=== PATIENT | male | born 1980 | race Caucasian/White ===

== ENCOUNTER 2016-08-03 12:04 | Emergency (ER) | payer BC ==
[~2016-08-03] VITALS: Ht 175.3 cm; Wt 82.3 kg
[~2016-08-03 12:04] MED LIST: PRED1SUS3 OPL
[2016-08-03 12:09] VITALS: TEMP 36.7; Ht 175.3 cm; Wt 82.3 kg
[2016-08-03] MEDS ORDERED: OPTIRAY 320 IV PRN (13:45)
[2016-08-03 14:07] LABS: BASO % 0.6 %; BASO ABS # 0.05 K/uL (0-0.2); COMPLETE YES; EOS % 2.2 %; HEMATOCRIT 41.2 % (42-52); IG% 0.1 %; LYMPH % 24.2 %; MEAN CELL VOLUME 83.1 fL (80-100); MEAN PLATELET VOLUME 10.2 fL (7.4-10.4); MONO % 5.2 %; NEUT % 67.7 %; PLATELET COUNT 242 K/uL (130-400); RED BLOOD COUNT 4.96 M/uL (4.7-6.1); WHITE BLOOD COUNT 8.68 K/uL (4.8-10.8)
[2016-08-03 14:21] LABS: CALCIUM 9.1 mg/dl (8.5-10.1); CREATININE 0.83 mg/dl (0.60-1.40); POTASSIUM 3.9 mmol/L (3.5-5.1)
[2016-08-03 14:25] LABS: ALB/GLOB RATIO 1.1 (0.9-2)
--- NOTE | 2016-08-03 14:56 | DIAGNOSTIC IMAGING REPORT ---
CT SCAN OF THE ABDOMEN AND PELVIS WITH IV CONTRAST CLINICAL HISTORY: Left lower quadrant abdominal pain. COMPARISON STUDY: No priors. TECHNIQUE: Following the IV administration of 94 cc of Optiray 320, CT scan of the abdomen and pelvis is performed from the lung bases to the proximal femora. Images are reviewed in the axial, sagittal, and coronal planes. IV contrast was administered without complication. Automated dose control exposure was utilized. CT DOSE: 604.20 mGycm FINDINGS: Lung bases: The heart is normal in size and without pericardial effusion. The lung bases are clear. Liver: The contrast-enhanced liver is normal in size, contour, and attenuation. There is no intrahepatic biliary ductal dilatation. The hepatic veins and portal veins are patent. Gallbladder: Unremarkable. Spleen: Normal in size and attenuation. A 9 mm splenic hypodensity seen on image #96 is of indeterminant but doubtful significance. Pancreas: Unremarkable. Adrenal glands: Unremarkable. Kidneys: The contrast enhanced kidneys are normal in size and without hydronephrosis. The kidneys enhance symmetrically. Abdominal vasculature: The abdominal aorta is normal in course and caliber. Bowel: There is no bowel obstruction. There is moderate colonic diverticulosis. There is wall thickening with pericolonic inflammation and fluid seen involving the sigmoid colon consistent with acute diverticulitis. There is no evidence of diverticular abscess. The appendix is well-visualized and normal. Peritoneum: There is no intraperitoneal free air or abdominal ascites. There is a small fat-containing umbilical hernia. Lymphadenopathy: None. Pelvic viscera: The bladder wall appears circumferentially thickened. The prostate and seminal vesicles are normal as imaged. There are small bilateral fat-containing inguinal hernias. Skeletal structures: No lytic or blastic lesions are seen. There is age advanced arthritic change in the hips, right greater than left. IMPRESSION: 1. There is moderate colonic diverticulosis with evidence of acute sigmoid diverticulitis. No intraperitoneal free air is seen and there is no evidence of diverticular abscess. 2. There is nonspecific circumferential bladder wall thickening. Correlation with clinical findings and urinalysis will be required. 3. Age advanced arthritic change is present in the hips, right greater than left. 4. Additional findings as above. Electronically signed by: Jeremy Rivera M.D. 08/03/2016 2:55 PM Dictated Date/Time: 08/03/2016 2:50 PM
[2016-08-03 15:34] LABS: URINE APPEARANCE CLEAR (CLEAR); URINE BILIRUBIN NEG (NEG); URINE COLOR YELLOW; URINE NITRITE NEG (NEG); URINE SPECIFIC GRAVITY 1.011 (1.000-1.030); UROBILINOGEN NEG (NEG)
[2016-08-03 15:38] LABS: MANUAL MICROSCOPIC REQUIRED? NO; REVIEW REQ? NO; ZZUR CULT IF INDIC CLEAN CATCH NO
[2016-08-03] MEDS ORDERED: METR-162 PO (15:57)
[2016-08-03] MEDS ORDERED: HYDR-5688 PO (15:57)
[2016-08-03] MEDS ORDERED: CIPR-255 PO (15:57)
--- NOTE | 2016-08-03 15:59 | EMERGENCY ROOM VISIT NOTE ---
History First contact with patient: 13:32 Chief Complaint: ABDOMINAL PAIN Stated Complaint: STOMACH PAIN Nursing Triage Summary: Pt presents ambulatory to triage with c/o LLQ pain x 1 week. "Two Sundays ago I threw up. I think it was the stomach bug. That Fri I started having stomach pain. I have a hx of diverticulitis and gastritis. It's harder to move my bowels. I've been going every other day." History of Present Illness The patient is a 36 year old male who presents to the Emergency Room with complaints of left lower quadrant abdominal pain. The patient reports that 2 weeks ago, he had the "stomach bug," with symptoms of vomiting and diarrhea, which improved without treatment. He states that one week ago, he began to develop pain in the left side of his abdomen. He states the pain was initially mostly in his upper abdomen, but has since moved to the left lower abdomen. He initially thought that his symptoms were due to gastritis, as these were symptoms that he had had before. He attempted to decrease his intake of acidic foods, but states that the pain persists. He was seen at urgent care today and states that the pain was much worse with palpation of the left lower abdomen. He states the pain is a 3/10 at rest and 7/10 with palpation. He denies any diarrhea, but does state that he has been having bowel movements every other day rather than every day as he typically has. He does have a history of diverticulitis and states that his symptoms do feel similar. He denies any blood in his stools, nausea, vomiting or fevers. He denies any urinary symptoms. Review of Systems A complete 10-point Review of Systems was discussed with the patient, with pertinent positives and negatives listed in the History of Present Illness. All remaining Review of Systems questions can be considered negative unless otherwise specified. Social History Smoking Status: Current Every Day Smoker Marital Status: Housing Status: lives with family Current/Historical Medications Scheduled Ciprofloxacin Hcl (Cipro), 500 MG PO BID Metronidazole (Flagyl), 1 TAB PO TID Scheduled PRN Hydrocodone/Acetaminophen 5MG/325MG ([place] 5MG/325MG), 1-2 TABLET PO Q4H PRN for Pain Allergies Coded Allergies: No Known Allergies (Unverified , 08/03/16) Physical Exam Vital Signs Date Time Temp Pulse Resp B/P Pulse Ox O2 Delivery O2 Flow Rate FiO2 08/03/16 16:24 65 17 123/70 98 08/03/16 14:30 62 62 116/71 95 Room Air 08/03/16 12:09 36.7 77 18 137/75 95 Room Air Physical Exam VITALS: Vitals are noted on the nurse's note and reviewed by myself. Vital signs stable. GENERAL: This is a 36-year-old male, in no acute distress, nondiaphoretic, well- developed well-nourished. SKIN: Capillary reflex less than 2 seconds. HEART: Regular rate and rhythm without murmurs gallops or rubs. LUNGS: Clear to auscultation bilaterally without wheezes, rales or rhonchi. ABDOMEN: Positive bowel sounds x 4. Soft, mild tenderness over the left lower quadrant, without masses or organomegaly. No guarding or rebound tenderness. NEURO: Patient was alert and oriented to person place and time. Medical Decision & Procedures ER Provider Diagnostic Interpretation: CT SCAN OF THE ABDOMEN AND PELVIS WITH IV CONTRAST IMPRESSION: 1. There is moderate colonic diverticulosis with evidence of acute sigmoid diverticulitis. No intraperitoneal free air is seen and there is no evidence of diverticular abscess. 2. There is nonspecific circumferential bladder wall thickening. Correlation with clinical findings and urinalysis will be required. 3. Age advanced arthritic change is present in the hips, right greater than left. 4. Additional findings as above. Laboratory Results 08/03/16 13:50 Red Blood Count 4.96, Mean Corpuscular Volume 83.1, Mean Corpuscular Hemoglobin 29.0, Mean Corpuscular Hemoglobin Concent 35.0, Mean Platelet Volume 10.2, Neutrophils (%) (Auto) 67.7, Lymphocytes (%) (Auto) 24.2, Monocytes (%) (Auto) 5.2, Eosinophils (%) (Auto) 2.2, Basophils (%) (Auto) 0.6, Neutrophils # (Auto) 5.88, Lymphocytes # (Auto) 2.10, Monocytes # (Auto) 0.45, Eosinophils # (Auto) 0.19, Basophils # (Auto) 0.05 08/03/16 13:50 Test 08/03/16 13:50 08/03/16 13:55 White Blood Count 8.68 K/uL (4.8-10.8) Red Blood Count 4.96 M/uL (4.7-6.1) Hemoglobin 14.4 g/dL (14.0-18.0) Hematocrit 41.2 % (42-52) Mean Corpuscular Volume 83.1 fL (80-100) Mean Corpuscular Hemoglobin 29.0 pg (25-34) Mean Corpuscular Hemoglobin Concent 35.0 g/dl (32-36) Platelet Count 242 K/uL (130-400) Mean Platelet Volume 10.2 fL (7.4-10.4) Neutrophils (%) (Auto) 67.7 % Lymphocytes (%) (Auto) 24.2 % Monocytes (%) (Auto) 5.2 % Eosinophils (%) (Auto) 2.2 % Basophils (%) (Auto) 0.6 % Neutrophils # (Auto) 5.88 K/uL (1.4-6.5) Lymphocytes # (Auto) 2.10 K/uL (1.2-3.4) Monocytes # (Auto) 0.45 K/uL (0.11-0.59) Eosinophils # (Auto) 0.19 K/uL (0-0.5) Basophils # (Auto) 0.05 K/uL (0-0.2) RDW Standard Deviation 41.2 fL (36.4-46.3) RDW Coefficient of Variation 13.7 % (11.5-14.5) Immature Granulocyte % (Auto) 0.1 % Immature Granulocyte # (Auto) 0.01 K/uL (0.00-0.02) Anion Gap 10.0 mmol/L (3-11) Est Creatinine Clear Calc Drug Dose 123.1 ml/min Estimated GFR () 131.2 Estimated GFR (Non- 113.2 BUN/Creatinine Ratio 13.0 (10-20) Calcium Level 9.1 mg/dl (8.5-10.1) Total Bilirubin 0.4 mg/dl (0.2-1) Aspartate Amino Transf (AST/SGOT) 20 U/L (15-37) Alanine Aminotransferase (ALT/SGPT) 42 U/L (12-78) Alkaline Phosphatase 87 U/L (45-117) Total Protein 8.0 gm/dl (6.4-8.2) Albumin 4.2 gm/dl (3.4-5.0) Globulin 3.8 gm/dl (2.5-4.0) Albumin/Globulin Ratio 1.1 (0.9-2) Lipase 185 U/L (73-393) Urine Color YELLOW Urine Appearance CLEAR (CLEAR) Urine pH 5.0 (4.5-7.5) Urine Specific [place] 1.011 (1.000-1.030) Urine Protein NEG (NEG) Urine Glucose (UA) NEG (NEG) Urine Ketones 1+ (NEG) Urine Occult Blood NEG (NEG) Urine Nitrite NEG (NEG) Urine Bilirubin NEG (NEG) Urine Urobilinogen NEG (NEG) Urine Leukocyte Esterase NEG (NEG) Medical Decision Differential diagnosis includes diverticulitis, colitis, gastritis, appendicitis , hernia, UTI, pyelonephritis, renal calculus, among others. The patient was evaluated as above. Labs were drawn and IV access was obtained. Imaging studies were performed and read by radiology as above. The patient was reassessed multiple times during their stay in the emergency department and remained in stable condition. The patient is a 36-year-old male who presents today complaining of left lower quadrant abdominal pain. Labs revealed no leukocytosis or anemia. There were no concerning electrolyte abnormalities. Urinalysis was not suggestive of infection. CT of the abdomen and pelvis with IV contrast showed evidence of sigmoid diverticulitis. The patient will be treated with Cipro and Flagyl. He did request something for pain and was given a short course of [place], but was warned to take this only sparingly. He will follow-up with his primary care provider and will return for any worsening of his current condition or new/ concerning symptoms. Based on the patient's presentation, lab results, and imaging studies, I feel the patient is stable for outpatient treatment. Discharge instructions were reviewed with the patient. The patient verbalized understanding of my assessment and treatment plan and was discharged home in good condition. Impression Primary Impression: Sigmoid diverticulitis Departure Information Dispostion Home / Self-Care Condition GOOD Prescriptions Hydrocodone/Acetaminophen 5MG/325MG ([place] 5MG/325MG) Tab 1-2 TABLET PO Q4H Y for Pain, #12 TAB For Initial Treatment Prov: Bella Rod PA-C 08/03/16 Metronidazole (FLAGYL) 500 Mg Tab 1 TAB PO TID for 10 Days, #30 TAB Prov: Bella Rod PA-C 08/03/16 Ciprofloxacin Hcl (CIPRO) 500 Mg Tab 500 MG PO BID for 10 Days, #20 TAB Prov: Bella Rod ., LEANDRO 08/03/16 Referrals Carlos Umanzor (PCP) Patient Instructions My [facility] Additional Instructions You have been treated in the Emergency Department for diverticulitis. Laboratory results and imaging studies have ruled out any emergent causes for your abdominal pain which would warrant admission or surgery. You were prescribed ciprofloxacin to be taken as prescribed. This is an antibiotic. All antibiotics have the potential to cause diarrhea. Stop this medication and contact a medical provider if you were to develop any significant adverse side effects including: wheezing, shortness of breath, passing out, vomiting, or a diffuse rash. Always take antibiotics as directed and COMPLETE the ENTIRE course regardless of the improvement of your symptoms. You were prescribed Flagyl to be taken as prescribed. This is an antibiotic. All antibiotics have the potential to cause diarrhea. Stop this medication and contact a medical provider if you were to develop any significant adverse side effects including: wheezing, shortness of breath, passing out, vomiting, or a diffuse rash. Always take antibiotics as directed and COMPLETE the ENTIRE course regardless of the improvement of your symptoms. You have been prescribed [place] to be used for pain control. This is a narcotic medication. You cannot drive or consume alcohol while on this medicine. This medicine should only be used for pain that cannot be controlled with over-the- counter pain medicines. For pain control, you can use the following [id number] medicines (if >12 yo): - Regular strength (325mg/tab) Tylenol (acetaminophen) 2 tabs every 4-6 hours as needed. Do not exceed 12 tablets in a 24 hour period. Avoid taking more than 4 grams (4000 mg) of Tylenol per day. This includes any other sources of acetaminophen you may take on a regular basis. - Regular strength (200 mg/tab) Advil (ibuprofen) 1-2 tabs every 4-6 hours as needed. Do not exceed a dose of 3200 mg per day. Drink plenty of water and stay well hydrated. As with any trip to the Emergency Department, you should follow-up with your Primary Care Provider from today's visit. Return to the emergency department if your symptoms persist despite treatment plan outlined above or if the following symptoms occur: increased fevers, chills , worsening nausea/vomiting, blood in your stool or urine.
[2016-08-03 16:24] VITALS: BP 123/70; PULSE 65; O2SAT 98
== END 2016-08-03 16:25 | disposition home or self-care (01) ==
LOC: C.EDB 12:06 → C.EDA 16:25
DX: K57.32 Diverticulitis of large intestine without perforation or abscess without bleeding (principal); M16.0 Bilateral primary osteoarthritis of hip; F17.200 Nicotine dependence, unspecified, uncomplicated